=== PATIENT | male | born 1995 | race African-American/Black ===

== ENCOUNTER 2019-11-24 14:44 | Emergency (ER) | payer OTHER, SELFPAY ==
[2019-11-24 14:53] VITALS: BP 135/74; PULSE 74; RESP 14; TEMP 36.7; O2SAT 99
--- NOTE | 2019-11-24 14:57 | ED.MALEGU ---
HPI - Male Genitourinary General Chief complaint: Urogenital-Male Stated complaint: Std's Time Seen by Provider: 11/24/19 14:57 Source: patient Mode of arrival: ambulatory Limitations: no limitations History of Present Illness HPI Narrative: Ronak Mehta is a 24 yo male who comes to [facility] care for treatment of STD. Slept with another woman 2 weeks ago and has slept with girlfriend since then. Has yellow discharge with urination last few days Related Data Home Medications Medication Instructions Recorded Confirmed No Home Medications 11/24/19 11/24/19 Allergies Allergy/AdvReac Type Severity Reaction Status Date / Time No Known Drug Allergies Allergy Unknown Unknown Verified 11/24/19 15:03 Review of Systems Review of Systems: Narrative: CONSTITUTIONAL: Denies fever, chills, sweats. EYES: Denies visual changes, redness, discharge. ENT: Denies rhinorrhea, congestion, sore throat, otalgia. CARDIOVASCULAR: Denies chest pain, palpitations, edema. RESPIRATORY: Denies dyspnea, wheezing, cough GASTROINTESTINAL: Denies abdominal pain, nausea, vomiting, diarrhea. GENITOURINARY: Denies dysuria, hematuria, has abnormal discharge SKIN: Denies rash or itching. NEUROLOGIC: Denies numbness, or focal weakness. PSYCHIATRIC: Denies anxiety or depression. [facility] Family History Family History Other Diabetes mellitus High blood cholesterol Social History Social History (Updated 11/24/19 @ 15:11 by Sammi Myers CNP) Smoking status: Never smoker Alcohol intake: current Comments At time of signature, I agree with nursing past medical, surgical, social and family history. There is no relevant family history pertinent to the presenting complaint. Exam Narrative: Exam Narrative: GENERAL: This is a well-nourished, well-developed patient, in mild distress. HEAD: normocephalic, atraumatic. EYES: Sclera clear/white. Vision is grossly intact. EARS: External ears normal, . Hearing grossly intact. NOSE: External nose normal without nasal discharge, nares without redness, no rhinorrhea. THROAT: Mucous membranes moist, NECK: Neck supple, CARDIOVASCULAR: Regular rate and rhythm without murmurs, gallops, or rubs. RESPIRATORY: Clear to auscultation. Breath sounds equal bilaterally. No wheezes, rales, or rhonchi. GASTROINTESTINAL: Abdomen soft, SKIN: warm, intact with no suspicious lesions or rash, good texture and turgor. NEURO: awake, alert, and oriented to person, place and time. There were no obvious focal neurologic abnormalities. Steady gait EXTREMITIES: Normal range of motion. BACK: Nontender without deformity Course Course Emergency Course: Urine collected for screen for GC and chlamydia Treated with IM Rocephin and oral Zithromax Instructions no sexual behavior for a week posttreatment Follow-up with health clinic Vital Signs Vital signs: Vital Signs Temperature 98.1 F 11/24/19 14:53 Pulse Rate 74 11/24/19 14:53 Respiratory Rate 14 11/24/19 14:53 Blood Pressure 135/74 11/24/19 14:53 Pulse Oximetry 99 11/24/19 14:53 Temperature 98.1 F 11/24/19 14:53 Pulse Rate 74 11/24/19 14:53 Respiratory Rate 14 11/24/19 14:53 Blood Pressure 135/74 11/24/19 14:53 Pulse Oximetry 99 11/24/19 14:53 MDM - Male Genitourinary Differential Diagnosis Differential diagnosis: Likely urinary tract infection and other (STD) Lab Data Labs: Urine Glucose Negative Reference Range: Negative Urine Bilirubin Negative Reference Range: Negative Urine Ketone Negative Reference Range: Negative Urine Specific [place] 1.030 Reference Range:1.001-1.035 Urine Blood Negative Reference Range: Negative * * Urine pH 6.5 Reference Range: 5.0-9.0 U
[2019-11-24] MEDS: LIDOCAINE HCL 1% LOCAL INJ 20 ML VIAL IM (15:29)
[2019-11-24] MEDS: AZITHROMYCIN 250 MG TABLET 1000 MG PO (15:30)
[2019-11-24] MEDS: cefTRIAXone 250 MG VIAL IM (15:30)
== END 2019-11-24 16:12 | disposition home or self-care (01) ==
PROVIDERS: Emergency Provider Nurse Practitioner
DX: R36.9 Urethral discharge, unspecified (principal); Z20.2 Contact with and (suspected) exposure to infections with a predominantly sexual mode of transmission
CPT/HCPCS: 81003; 87491; 87591; 87661; 96372; 99213; A9270; G0463; J0696